=== PATIENT | male | born 1975 | race Two or more races ===

== ENCOUNTER 2024-01-06 15:06 | Emergency (ER) | payer OTHER ==
[~2024-01-06] VITALS: Ht 167.6 cm; Wt 99.8 kg
[2024-01-06] MEDS ORDERED: 0.9 % SODIUM CHLORIDE 1,000 ML IV STA (16:29)
[2024-01-06] MEDS ORDERED: INSULIN REGULAR, HUMAN 1,000 UNIT/10 ML UNITS IV ONE (16:30)
[2024-01-06 16:41] LABS: HEMATOCRIT 44.4 % (39.0-48.0); HEMOGLOBIN 15.5 g/dL (13-16.00); MEAN CORPUSCULAR HEMOGLOBIN 31.2 pg (27.00-32.0); PLATELET COUNT 179 K/uL (150-450); RED BLOOD COUNT 4.99 M/uL (4.00-6.00)
[2024-01-06 16:57] LABS: ALBUMIN 4.1 gm/dL (3.4-5.0); BILIRUBIN TOTAL 0.58 mg/dL (0.3-1.2); CALCIUM 9.4 mg/dL (8.5-10.1); CREATININE SERUM 1.12 mg/dL (0.70-1.30); GFR 70.27; GLOBULINA 3.7 G/DL (2.4-3.5); POTASSIUM 4.05 mEq/L (3.5-5.1); TOTAL PROTEIN 7.8 gm/dL (6.4-8.2)
[2024-01-06 17:04] LABS: ABG PH 7.403 (7.35-7.45)
[2024-01-06 17:05] LABS: ABG PO2 80.6 mmHg (80-100); ABG pCO2 40.5 mmHg (35-45); BASE EXCESS 0 mmol/l; BICARBONATE 24.7 mmol/l (23-25); SaO2 95.6 %; Tco2 25.9 mmol/l; allen test SATISFACTORY; o2 21 %; puncture site RADIAL RIGHT
[2024-01-06 17:38] LABS: URINE APPEARANCE Clear; URINE BILIRRUBIN Negative (NEGATIVE); URINE BLOOD NHT; URINE COLOR Yellow; URINE KETONE Negative (NEGATIVE); URINE LEUKOCYTE Negative; URINE NITRATE Negative; URINE PROTEIN Negative (NEGATIVE); URINE UROBILINOGEN 0.2 E.U./dl
[2024-01-06 17:39] LABS: URINE BACTERIA 168.7 uL (0.0-1933); URINE RBC 39.3 uL (0.0-20.8); URINE WBC 142.8 uL (0.0-23.2)
[2024-01-06 18:23] LABS: URINE CAST 0.15 uL (0.0-1.40); URINE GLUCOSE >=1000 MG/DL (NEGATIVE)
== END 2024-01-06 20:34 | disposition home or self-care (01) ==
LOC: ER 15:08
PROVIDERS: Emergency Medicine
DX: R73.9 Hyperglycemia, unspecified (principal); R35.89 Other polyuria